=== PATIENT | male | born 1935 | race Hispanic/Latino ===

== ENCOUNTER 2021-02-19 11:11 | Inpatient (IN) | payer MEDICARE, MEDICAID ==
[2021-02-19 12:04] LABS: #Monocytes 0.9 10x3/uL (0.0-1.1); #Neutrophils 9.1 10x3/uL (1.5-8.4); %Basophils 0.3 % (0.0-2.0); %Lymphocytes 12.4 % (18.0-47.0); %Monocytes 7.5 % (0.0-10.0); %Neutrophils 79.1 % (40.0-75.0); Hemoglobin 12.4 g/dL (13.5-17.5); Mean Corpuscular HGB CONC 33.1 g/dL (32.0-36.0); Mean Corpuscular Hemoglobin 29.7 pg (27.0-33.0); Mean Corpuscular Volume 89.7 fl (81.2-95.1); Mean Platelet Volume 9.4 fl (7.4-10.4); Platelet Count 319 10x3/uL (150-450); RBC Distribution Width 13.3 % (11.5-14.5); Red Blood Cell (RBC) Count 4.18 10x6/uL (4.32-5.72); White Blood Cell (WBC) Count 11.5 10x3/uL (3.5-10.5)
[2021-02-19 12:10] LABS: ALT (SGPT) 20 U/L (8-55); AST (SGOT) 13 U/L (5-34); Albumin 3.6 g/dL (3.4-4.8); Alkaline Phosphatase 61 U/L (40-110); Anion Gap 11 mmol/L (10-20); BUN (Urea Nitrogen) 7 mg/dL (8.4-25.7); Bilirubin, Total 0.6 mg/dL (0.2-1.2); CK (CPK) 55 U/L (30-200); Calc. Creatinine Clearance 0 mL/min (70-130); Calcium 8.6 mg/dL (7.8-10.44); Carbon Dioxide 26 mmol/L (23-31); Chloride 105 mmol/L (98-107); Globulin 4.2 g/dL (2.4-3.5); Glucose 97 mg/dL (83-110); Potassium 3.4 mmol/L (3.5-5.1); Protein, Total 7.8 g/dL (5.8-8.1); Sodium 139 mmol/L (136-145)
[2021-02-19] MEDS ORDERED: Aspirin 81 mg Enteric Coated Tablet ONE (13:31)
[2021-02-19] MEDS ORDERED: Lorazepam 2 MG/ML VIAL ONE (13:32)
[2021-02-19] MEDS ORDERED: Nitroglycerin 2% Ointment 1 INCH/1 GM Packet ONE (13:33)
[2021-02-19] MEDS ORDERED: Ondansetron PF 4 MG/2 ML Vial IVP PRN (15:52)
[2021-02-19] MEDS ORDERED: hydrALAZINE 20 MG/ML VIAL SLOW IVP PRN (15:52)
[2021-02-19] MEDS ORDERED: Ondansetron ODT 4 MG TAB PO PRN (15:52)
[2021-02-19] MEDS ORDERED: Acetaminophen 650 MG Suppository PR PRN (15:52)
[2021-02-19] MEDS ORDERED: Acetaminophen 325 MG TAB PO PRN (15:52)
[2021-02-19] MEDS ORDERED: Rosuvastatin 20 MG TAB PO SCH (21:00)
[2021-02-20 04:51] LABS: #Eosinphils 0.2 10x3/uL (0.0-0.5); #Neutrophils 7.2 10x3/uL (1.5-8.4); %Basophils 0.4 % (0.0-2.0); %Eosinophils 1.7 % (0.0-6.0); %Lymphocytes 19.5 % (18.0-47.0); %Neutrophils 68.8 % (40.0-75.0); Hemoglobin 13.4 g/dL (13.5-17.5); Mean Corpuscular HGB CONC 32.5 g/dL (32.0-36.0); Mean Corpuscular Hemoglobin 27.4 pg (27.0-33.0); Mean Corpuscular Volume 84.3 fl (81.2-95.1); Platelet Count 196 10x3/uL (150-450); RBC Distribution Width 14.3 % (11.5-14.5); Red Blood Cell (RBC) Count 4.89 10x6/uL (4.32-5.72); White Blood Cell (WBC) Count 10.5 10x3/uL (3.5-10.5)
[2021-02-20 04:52] LABS: Anion Gap 12 mmol/L (10-20); Cardiac Risk 3.1 (Less than 4.5); LDL Cholesterol, Calculated 60 mg/dL
[2021-02-20 05:08] LABS: BUN (Urea Nitrogen) 23 mg/dL (8.4-25.7); Calc. Creatinine Clearance 0 mL/min (70-130); Carbon Dioxide 27 mmol/L (23-31); Chloride 105 mmol/L (98-107); Cholesterol 110 mg/dl (< 200 Desired); Glucose 105 mg/dL (83-110); HDL Cholesterol 36 mg/dL (>60 Neg Risk); Potassium 4.8 mmol/L (3.5-5.1); Sodium 139 mmol/L (136-145); Triglycerides 71 mg/dL (Less than 150)
[2021-02-20] MEDS ORDERED: Enoxaparin Sodium 40 MG/0.4 ML SYRINGE SC SCH (09:00)
[2021-02-20] MEDS ORDERED: Aspirin 81 mg Enteric Coated Tablet PO SCH (09:00)
[2021-02-20 11:34] LABS: SARS-CoV-2 NAA Rapid Test Not Detected (NotDetected)
[2021-02-20 13:34] VITALS: TEMP 98
[2021-02-20 17:43] VITALS: BP 145/65
== END 2021-02-20 16:10 | disposition home or self-care (01) | DRG 101 ==
LOC: CSHERS 11:11 → CSHTELE 18:07
PROVIDERS: ADMIT Family Medicine; ATTEND Internal Medicine
DX: G40.109 Localization-related (focal) (partial) symptomatic epilepsy and epileptic syndromes with simple partial seizures, not intractable, without status epilepticus (principal); I69.954 Hemiplegia and hemiparesis following unspecified cerebrovascular disease affecting left non-dominant side; R25.1 Tremor, unspecified; Z20.822 Contact with and (suspected) exposure to COVID-19; I10 Essential (primary) hypertension; E78.5 Hyperlipidemia, unspecified; E11.8 Type 2 diabetes mellitus with unspecified complications; Z87.891 Personal history of nicotine dependence; Z79.82 Long term (current) use of aspirin; Z79.899 Other long term (current) drug therapy
CPT/HCPCS: 36416; 70450; 70551; 71045; 80048; 80053; 80061; 82550; 84443; 84484; 85025; 87635; 93005; 93306; 94760; 96374; J1650; J2060; U0002; U0003; U0005